=== PATIENT | female | born 1995 | race Caucasian/White ===

== ENCOUNTER → 2024-10-03 | Outpatient (CLI) | payer BC ==
--- NOTE | 2024-10-03 08:27 | US ---
EXAMINATION TYPE: US pelvic complete DATE OF EXAM: 10/03/2024 COMPARISON: NONE CLINICAL INDICATION: Female, 28 years old with history of R10.31 RLQ PAIN R10.32 LLQ PAIN R10.30; RLQ Pain x 1 year, worsening over last few months. Patient denies any other signs, symptoms, or relevant history TECHNIQUE: Transabdominal (TA). Transabdominal grayscale sonographic images of the pelvis were ordered. Transvaginal sonographic imag es were not medically necessary .Doppler imaging: Color Doppler Images were obtained. Spectral doppler images were obtained. FINDINGS: Date of LMP: 09/27/2024 EXAM MEASUREMENTS: Uterus: 8.0 x 3.5 x 4.4 cm Endometrial Stripe: 0.2 cm Right Ovary: 7.0 x 4.5 x 4.1 cm Left Ovary: 4.5 x 2.2 x 2.4 cm 1. Uterus: Anteverted wnl 2. Endometrium: wnl 3. Right Ovary: Multiple hemorrhagic cysts, largest = 4.0 x 2.9 x 2.8 cm. Otherwise WNL 4. Left Ovary: wnl Spectral, color and waveform doppler imaging shows good arterial and venous flow within the ovaries ; there is no evidence for ovarian torsion. 5. Bilateral Adnexa: wnl 6. Posterior cul-de-sac: wnl Trace fluid within anterior cul de sac. Urinary bladder is sonolucent. Posterior wall normal. IMPRESSION: 1. Scattered complex cysts may be hemorrhagic cysts. Largest on the right measures 4 cm. Follow-up in 6 months recommended. O-rads 2 O-RADS 2021 [email or web address] [facility], Workstation: [email or web address], 10/03/2024 8:25 AM
--- NOTE | 2024-10-03 09:30 | US ---
EXAMINATION TYPE: US abdomen complete DATE OF EXAM: 10/03/2024 COMPARISON: NONE CLINICAL INDICATION: Female, 28 years old with history of R10.31 RLQ PAIN R10.32 LLQ PAIN R10.30; RLQ pain x 1 year, worsening over last few months. Patient denies any other signs, symptoms, or relevant history. TECHNIQUE: Grayscale and color Doppler imaging of the abdomen was performed. FINDINGS: EXAM MEASUREMENTS: Liver Length: 15.0 cm Gallbladder Wall: 0.1 cm CBD: 0.3 cm, color Doppler imaging was utilized to isolate the common bile duct for measurement. Spleen: 10.0 x 3.1 x 3.5 cm Right Kidney: 11.4 x 4.4 x 4.9 cm Left Kidney: 12.9 x 4.8 x 4.4 cm [employer]IOR [employer]PER NOTES: Pancreas: wnl Liver: wnl, no dilated ducts, masses or cysts. Gallbladder: wnl Evidence for sonographic Miner's sign: No CBD: wnl Spleen: wnl Right Kidney: wnl, No hydronephrosis, calculi or masses seen Left Kidney: wnl, No hydronephrosis, calculi or masses seen Upper IVC: wnl Abd Aorta: wnl Findings: IMPRESSION: 1. No suspicious acute abdominal ultrasound abnormality. [facility], Workstation: [facility], 10/03/2024 9:28 AM
== END | disposition home or self-care (01) ==
LOC: RADUSWWP 06:51
PROVIDERS: ATTEND Family Medicine
DX: R10.31 Right lower quadrant pain (principal); R10.32 Left lower quadrant pain
CPT/HCPCS: 76700; 76856; 93975